=== PATIENT | female | born 1990 | race Caucasian/White ===

== ENCOUNTER 2019-08-19 21:15 | Emergency (ER) | payer BC, SELFPAY ==
[2019-08-19 21:19] VITALS: BP 165/113; PULSE 111; RESP 20; TEMP 36.4; O2SAT 100
--- NOTE | 2019-08-19 21:26 | ED.FEMALEGU ---
HPI - Female Genitourinary General Chief complaint: Urogenital-Female Stated complaint: b/l flank pain, back pain Time Seen by Provider: 08/19/19 21:17 Source: patient and RN notes reviewed Mode of arrival: other Limitations: no limitations History of Present Illness HPI Narrative: Pt is a 29 y/o female who presents to the ED with c/o bilateral flank pain that began a week ago. Pt states that her sx started as a UTI and she believes that she might have a kidney infection. She states that she took Azo and ate some cranberries for her sx, but with no relief. Pt's last BM was Wednesday (08/13/19). Pt denies a chance of being . Pt also reports urinary frequency, urinary retention, lower back pain, and constipation, but denies fever, chest pain, dyspnea, cough, and dysuria. MD elicited complaint: flank pain Pertinent past history: recurrent UTIs Onset (ago): week(s) (1) Location of symptoms: flank (bilateral) Consistency: constant Urinary symptoms: Frequency (and retention) Relieving factors: none Associated symptoms: nausea, back pain (lower), constipation and other (urinary frequency, urinary retention) Treatment prior to arrival: other (Azo, cranberries) Related Data Allergies Allergy/AdvReac Type Severity Reaction Status Date / Time No Known Allergies Allergy Unverified 07/31/11 19:39 Review of Systems Review of Systems: Narrative: CONSTITUTIONAL: Denies fever. CARDIOVASCULAR: Denies chest pain. RESPIRATORY: Denies dyspnea and cough. GASTROINTESTINAL: Reports nausea and constipation. GENITOURINARY: Reports bilateral flank pain, frequent urination, and urinary retention. Denies dysuria. MUSCULOSKELETAL: Reports lower back pain. All systems reviewed & are unremarkable except as noted in HPI and below PMFSH Past Medical History Medical History (Updated 08/19/19 @ 23:11 by Romy Leblanc MD) Asthma Cardiac valve prolapse HTN (hypertension) UTI (urinary tract infection) Surgical History Surgical History (Updated 08/19/19 @ 21:37 by Angelia Benjamin) Surgical history unknown Social History Social History (Updated 08/19/19 @ 21:37 by Angelia Benjamin) Smoking status: Never smoker Exam Narrative: Exam Narrative: CONSTITUTIONAL: Awake, alert, conversant HEAD: Normocephalic, atraumatic. EYES: EOMI, conjunctiva clear ENT: Nares patent. Mucous membranes moist. NECK: Full range of motion RESPIRATORY: No respiratory distress, speaking in full sentences, no tachypnea HEART: Tachycardic. ABDOMEN: Non distended, mild suprapubic tenderness, + flank tenderness bilaterally EXTREMITIES: Normal range of motion. No edema SKIN: Warm, dry, no rash. NEUROLOGIC: No focal deficits. Alert and oriented x3. Course Course Emergency Course: Patient presents for evaluation of flank pain with urinary symptoms. Patient without history of kidney stones. No colicky type pain. Time of assessment, ABCs are intact, vital signs notable for mild tachycardia, patient is afebrile. Patient with mild bilateral flank tenderness and suprapubic tenderness without rebound, rigidity or guarding. Patient is otherwise well-appearing. Laboratory results notable for leukocytosis. Urinalysis is consistent with UTI. Overall, clinical symptoms are consistent with pyelonephritis. With leukocytosis and initial tachycardia, pt meets criteria for sepsis, but no signs of severe sepsis or septic shock. Patient was given IV fluids, Tylenol, pain medicine and nausea medicine with good improvement in her symptoms. She was given a first dose of Rocephin, and tolerated this well. Patient will be sent home on Keflex, advised PCP follow-up. She was advised to return should she experience inability to tolerate an antibiotic, worsening pain or progression of her symptoms. Vital Signs Vital signs: Vital Signs Temperature 36.4 C L 08/19/19 21:19 Pulse Rate 111 H 08/19/19 21:19 Respiratory Rate 20 08/19/19 21:19 Blood Pressure 165/113 H 08/19/19 21:19 Pulse O
[2019-08-19 21:47] LABS: Basophils Percent Auto 0.3 % (0.2-1.2); Eosinophils Absolute Auto 0.1 K/mm3 (0-0.3); Eosinophils Percent Auto 0.5 % (0-4.4); Hematocrit 41.9 % (37.0-47.0); Hemoglobin 13.7 g/dL (12.0-15.0); Immature Granulocyte Absolute 0.03 K/mm3 (0.00-0.031); Immature Granulocyte Percent A 0.3 % (0-0.5); Lymphocytes Percent Auto 10.7 % (18.3-44.2); Mean Corpuscular HGB Conc 32.7 g/dl (32-36); Mean Corpuscular Hemoglobin 27.1 pg (26-34); Mean Corpuscular Volume 82.8 fl (80-100); Mean Platelet Volume 11.4 fl (7.4-10.4); Monocytes Absolute Auto 0.8 K/mm3 (0.1-0.6); Monocytes Percent Auto 6.8 % (2.6-8.5); Neutrophils Absolute Auto 9.1 K/mm3 (1.3-6.7); Neutrophils Percent Auto 81.4 % (45.5-73.1); Platelet Count Result 216 k/mm3 (150-375); Red Blood Count 5.06 M/mm3 (4.2-5.4); Red Cell Distribution Width 13.1 % (11.5-14.5); White Blood Count 11.2 K/mm3 (4.5-10.0)
[2019-08-19] MEDS: SODIUM CHLORIDE 0.9% IV 1,000 ML 999 ML IV CONT (21:58)
[2019-08-19 21:59] LABS: Alanine Aminotransferase 15 U/L (4-35); Albumin Level 4.8 g/dL (3.5-5.1); Alkaline Phosphatase 74 U/L (38-126); Aspartate Amino Transferase 24 U/L (14-36); Bilirubin,Total 0.4 mg/dL (0.2-1.3); Blood Urea Nitrogen 13 mg/dL (7-17); Calcium 9.5 mg/dL (8.4-10.2); Carbon Dioxide 27 mmol/L (22-30); Chloride 100 mmol/L (98-107); Estimated CRCL calculation 116 ml/min; Estimated Glomerular Filt Rate > 60; Glucose 112 mg/dL (65-105); Potassium 3.6 mmol/L (3.4-5.0); Sodium 137 mmol/L (137-145)
[2019-08-19] MEDS: ONDANSETRON INJ 4 MG/2 ML VIAL IV PUSH (21:59)
[2019-08-19 22:26] LABS: Add Urine Microscopic? YES; Appearance Urine Cloudy (Clear); Bacteria Urine Trace /hpf; Bilirubin Urine Negative (Negative); Blood Urine 1+ (Negative); Color Urine Amber (Yellow); Glucose Urine UA Negative (Negative); Ketones Urine Negative (Negative); Leukocyte Esterase Ur 2+ LEU/UL (Negative); Mucus Urine Rare /lpf; Nitrate Urine Positive (Negative); Protein Urine 2+ mg/dL (Negative); RBC Urine 21-50 /hpf (0-2); Specific Grav Ur 1.015 (1.001-1.035); Squamous Epithelial Cell Urine Many /hpf (Few); Urobilinogen Urine Negative mg/dL (<2.0); WBC Urine >75 /hpf
[2019-08-19 22:54] VITALS: BP 147/89; PULSE 76; RESP 20
[2019-08-19 23:29] VITALS: BP 122/69; PULSE 70; RESP 18; O2SAT 98
== END 2019-08-19 23:30 | disposition home or self-care (01) ==
PROVIDERS: Emergency Provider Emergency Medicine
DX: A41.9 Sepsis, unspecified organism (principal); N12 Tubulo-interstitial nephritis, not specified as acute or chronic; J45.909 Unspecified asthma, uncomplicated; I10 Essential (primary) hypertension
CPT/HCPCS: 36415; 80053; 81001; 81025; 85025; 87077; 87086; 87088; 87186; 96365; 96367; 96375; 99284; J0131; J0696; J2405; J7030